=== PATIENT | male | born 1945 | race Caucasian/White ===

== ENCOUNTER → 2023-07-23 15:17 | Outpatient (CLI) | payer MEDICARE, OTHER, SELFPAY ==
--- NOTE | 2023-07-23 15:19 | DI.US.S_ITS ---
PROCEDURE: US SCROTUM INDICATIONS: PAIN AND MASS TECHNIQUE: Real-time scanning was performed of the scrotum and testicles, with image documentation. Color and pulse Doppler interrogation was performed of both testicles. COMPARISON: None. FINDINGS: Right: Testicle is normal in size at 3.2 x 3.8 x 3.3 cm, and homogenous in echotexture. Tiny cyst in right testes is seen measures 3 x 3 x 4 mm in size. Tiny cyst in left testes is also noted measures 3 x 3 x 2 mm in size. Large right-sided spermatocele is seen measures 7 sport and 7 x 5.2 x 7.9 cm and 2.5 x 2 x 5.2 cm in size, containing internal septation. Epididymis is suboptimally seen due to presence of the large spermatocele. No hydrocele or varicoceles. Overlying scrotal skin is normal in thickness. Left: Testicle is normal in size at 4 x 2.8 x 3.3 cm, and homogeneous in echotexture. Epididymis is normal in size. Septated cysts are noted in left epididymis measures 0.9 x 1 x 0.6 cm and 3 x 4 x 3 mm in size. Small left hydrocele is seen. No varicoceles. Overlying scrotal skin is normal in thickness. Doppler: Color and pulse Doppler demonstrate normal and symmetric arterial flow in both testicles. IMPRESSION: 1. Large right-sided septated spermatoceles as above. 2. Septated left epididymal cysts. Small left hydrocele. 3. Tiny bilateral testicular cysts. No solid appearing testicular lesions. Dictated by: Jg Granados M.D. on 07/23/2023 at 16:33 Approved by: Jg Granados M.D. on 07/23/2023 at 16:36
== END ==
PROVIDERS: PCP Family Medicine; Referring Provider Specialist; Visit Provider Specialist
DX: N43.42 Spermatocele of epididymis, multiple; N50.3 Cyst of epididymis; N40.1 Benign prostatic hyperplasia with lower urinary tract symptoms; N13.8 Other obstructive and reflux uropathy
CPT/HCPCS: 76870; 99215

== ENCOUNTER 2023-08-23 07:47 | Day surgery (SDC) | payer MEDICARE, OTHER, SELFPAY ==
[2023-08-20 09:27] VITALS: BMI 26.9
[2023-08-23] VITALS (7 sets, daily range): BP systolic 114–146; BP diastolic 69–78; PULSE 71–85; RESP 12–18; TEMP 36.2–36.9; O2SAT 91–97; BMI 26.9
--- NOTE | 2023-08-23 | PATH_ITS ---
[facility] Accession Number: [id number] No. of containers..01 Tissue . 01 Material submitted: . SPERMATOCELE SAC - RIGHT SPERMATOCELE SAC . 01 Diagnosis: Right Spermatocele, Excision: Epithelial-lined fibrovascular tissue consistent with spermatocele sac. Negative for neoplasia. MRV 08/27/2023 1743 Local . 01 Electronically signed: . Shweta Jensen MD, Pathologist NPI- [id number] . 01 Gross description: . The specimen is received in formalin labeled with the patient's name, , and right spermatocele sac, and consists of a beth, membranous soft tissue fragment with no attached adipose tissue measuring 5.4 x 3.1 x 0.3 cm. Sectioning reveals the membranous tissue to average 0.1 cm thick with no lesions identified. human resources representative sections are submitted in cassette A1. ([id number]) /FRR 08/24/2023 1857 Local . 01 Pathologist provided ICD-10: N50.9 . 01 CPT . 234815 Specimen Comment: A courtesy copy of this report has been sent to [phone] Performed at: 01 [facility] [address] [place] [address] [address] [facility], [place], [place] [id number] MD Devin Potter MD Phone: [phone]
[2023-08-23] MEDS: LACTATED RINGERS 1,000 ML 21 ML IV ×2 (08:16→09:48)
--- NOTE | 2023-08-23 08:32 | PM.PREOP ---
Pre-operative Note Interval Note History & Physical reviewed/Exam performed by Physician: Yes Changes to H&P: No
[2023-08-23] MEDS: CEFAZOLIN 2 GM/100 ML PREMIX 100 ML IV (08:59)
--- NOTE | 2023-08-23 09:11 | P.HP_ITS ---
History of Present Illness History of Present Illness Date Patient Seen: 08/23/23 Time Patient Seen: 08:30 Chief complaint: Right spermatocele Narrative: Patient is a 77-year-old gentleman presenting with complaint increasing size, discomfort, and pain in the right scrotal contents. He has history of having undergone previous right hydrocelectomy. Right scrotal ultrasound 07/23/2023 redemonstrated multiple large right spermatoceles. There is a dominant 7.3 cm spermatocele. Patient indicates a desire to undergo definitive intervention. [facility] Medical History Arthritis BPH (benign prostatic hyperplasia) BPH w urinary obs/LUTS BPH w urinary obs/LUTS Decreased libido Disc disorder Dysuria Epididymal cyst GERD (gastroesophageal reflux disease) Heart attack Hydrocele of testis Right hydrocele Spermatocele of epididymis, multiple Spinal stenosis UTI (urinary tract infection) Surgical History History of hydrocelectomy Social History household members: spouse Smoking Status: Former smoker Meds Home Medications and Allergies Home Medications Medication Instructions Recorded Confirmed Type aspirin 81 mg tablet,delayed 81 mg PO DAILY 05/26/20 08/23/23 History release tamsulosin 0.4 mg capsule 0.8 mg PO BEDTIME #180 caps 11/28/22 08/23/23 Rx pravastatin 20 mg tablet 20 mg PO DAILY 08/20/23 08/23/23 History Allergies Allergy/AdvReac Type Severity Reaction Status Date / Time bee venom protein (honey bee) AdvReac Unknown trouble Verified 08/23/23 08:07 breathing, facial swelling pseudoephedrine AdvReac Unknown Hives Verified 08/23/23 08:07 [From [facility]] Review of Systems Review of Systems ROS: Yes All systems reviewed with the patient and are negative except as otherwise documented Exam Vital Signs (past 8 hours): - 08/23/23 08:09 Temperature 98.5 F Pulse Rate 75 Respiratory Rate 16 Blood Pressure 146/78 H Pulse Oximetry 96 Oxygen Delivery Method Room Air Oxygen Delivery Method Room Air Narrative Exam Narrative: Patient is a well-developed and nourished elderly gentleman in no acute distress. Head/neck-sclera clear pupils are equal and round bilaterally. Chest-equal and unlabored expansion bilaterally. Heart-normal sinus rhythm. Genitalia-global enlargement of both hemiscrotum right much greater than the left. Mildly firm and nontender no erythema. Assessment & Plan Assessment & Plan narrative: Assessment: 1. Symptomatic, large right spermatoceles. Plan: 1. Discussion and informed consent for RIGHT SPERMATOCELECTOMY.
--- NOTE | 2023-08-23 09:22 | SUR.OPER ---
Supine on padded OR bed, head on pillow, arms secured on padded arm boards at <90 degrees abduction, legs uncrossed, safety belt at thigh, tape over blanket over lower legs.
[2023-08-23] MEDS: ACETAMINOPHEN IV 1,000 MG/100 ML VIAL 400 MG IV (09:25)
[2023-08-23] MEDS: NEOMYCIN/POLYMYXIN/BACITRA UD OINT 1 EACH TOP (09:26)
[2023-08-23] MEDS: BUPIVACAINE LIPOSOME 266 MG/20 ML VIAL INJ (09:26)
[2023-08-23] MEDS: BUPIVACAINE 0.25% W/ EPI 30 ML VIAL INJ (09:30)
--- NOTE | 2023-08-23 10:40 | P.OP_ITS ---
Operative Date/Time/Diagnoses Date of procedure: 08/23/23 Time of procedure: 10:25 Pre-op diagnosis: 1. Multiple right spermatoceles. 2. Recurrent right hydrocele. Post-op diagnosis: other (Incidental finding of recurrent right hydrocele) Procedure & Clinicians Procedure: 1. Right spermatoceleectomy. 2. Recurrent right hydrocelectomy (these operative intervention should be assigned a complexity code due to postoperative changes and length of surgery exceeding 150% of usual/expected). Same procedure as scheduled: No (Recurrent right hydrocelectomy.) Indications: 1. Symptomatic right spermatoceles (pain, tenderness). Surgeon: Jesús Hackett Click Yes if Unassisted: Yes Anesthesia Type: General and Local (1.33% Exparel and 0.25% Marcaine with epinephrine.) Operative Notes Closure Type: primary Specimen(s): other (Spermatocele sac) Applied: drain(s) (10 Pakistani fenestrated Oscar drain-right hemiscrotum.) and other Estimated Blood Loss (mL): 5 Blood products transfused: none Procedure in detail: The patient was positioned in supine in the lower abdomen, groin, and genitalia were then prepped and draped in sterile fashion. A solution of 0.25% Marcaine with epinephrine was and new infiltrate midline scrotal raphae and subcutaneous dartos fascia. The needle tip cautery was then used to divide the midline scrotal skin and subcutaneous dartos fascia down to the level of the thickened and adherent tunica vaginalis. Meticulous and diligent blunt and cautery dissection were required to free the scarred tunica vaginalis from the inner scrotal wall and deliver through the incision. It was then open the inferior aspect of the palpable testis. Multiple fluid pockets were encounter. A dominant pocket line superior to the testis was also encountered. The epithelial lining was mobilized from surrounding structures and removed in its entirety. The appendage of the epididymis was cautery amputated. The right testis was then repositioned anatomically within the right hemiscrotum and secured at the inferior and superior pole with 2-0 Monocryl. A solution of Exparel was then utilized to infiltrate the scrotal wall and skin at the inferior lateral aspect of the right hemiscrotum. A fenestrated 10 Pakistani Oscar drain was then brought out through this location from inside to out using a trocar. The length of drain was shortened and positioned within the right hemiscrotum satisfactorily. It was then secured to the skin using a 2 arm David sandal technique in usual fashion. The subcutaneous dartos fascia and skin of the midline incision was then infiltrated with Exparel 1.33%. The dartos fascia was then closed with running 2 0 Monocryl. The skin was reapproximated made using a running horizontal mattress of 4-0 Monocryl. The incision and genitalia were then cleaned and dried and bacitracin antibiotic ointment was applied to the incision line. Dry, sterile fluff gauze were then applied to the scrotum. The patient was then fitted with an athletic supporter. The patient was then awakened, transferred to [facility], and then transported recovery in stable condition. Complications: none Post-operative Condition: stable Disposition: PACU Plan for aftercare: Discharge home.
[2023-08-23] MEDS: OXYCODONE IR 5 MG TABLET PO (10:59)
== END 2023-08-23 11:42 | disposition home or self-care (01) ==
PROVIDERS: PCP Family Medicine; Referring Provider Specialist; Visit Provider Specialist
PROC: (CPT 55040; principal; 2023-08-23 09:15)
DX: N43.42 Spermatocele of epididymis, multiple (principal); N43.3 Hydrocele, unspecified
CPT/HCPCS: 55040; C9290; J0131; J0690; J1100; J2405; J2704; J3010

== ENCOUNTER → 2023-09-09 07:44 | Outpatient (CLI) | payer MEDICARE, OTHER, SELFPAY ==
--- NOTE | 2023-09-09 07:45 | DI.RAD.S_ITS ---
PROCEDURE: XR LUMBAR SPINE MIN 4V INDICATIONS: BACK PAIN TECHNIQUE: 5 views of the lumbar spine were acquired, including bilateral oblique views. COMPARISON: None. FINDINGS: Bones: 5 nonrib-bearing vertebrae are present. There is normal bony alignment. No vertebral body compression fractures. No suspicious bony lesions. Prominent lower lumbar facet arthropathy. Multilevel degenerative disc space loss. Soft tissues: Overlying bowel gas pattern is normal. No suspicious soft tissue calcifications. Oblique images: No pars defects. IMPRESSION: Degenerative change including prominent multilevel facet arthropathy. No acute bony abnormality. Dictated by: Oscar Gonzalez M.D. on 09/09/2023 at 8:09 Approved by: Oscar Gonzalez M.D. on 09/09/2023 at 8:10
== END ==
PROVIDERS: PCP Family Medicine; Referring Provider Physical Medicine & Rehabilitation; Visit Provider Physical Medicine & Rehabilitation
DX: M54.9 Dorsalgia, unspecified (principal); M47.816 Spondylosis without myelopathy or radiculopathy, lumbar region; M48.061 Spinal stenosis, lumbar region without neurogenic claudication; G62.9 Polyneuropathy, unspecified
CPT/HCPCS: 72110; 99214

== ENCOUNTER → 2023-09-19 11:40 | Outpatient (CLI) | payer MEDICARE, OTHER, SELFPAY | PROVIDERS: PCP Family Medicine; Visit Provider Specialist | DX: N40.1 Benign prostatic hyperplasia with lower urinary tract symptoms (principal); N13.8 Other obstructive and reflux uropathy | CPT/HCPCS: 87086 ==

== ENCOUNTER → 2023-09-19 13:35 | Outpatient (CLI) | payer MEDICARE, OTHER, SELFPAY ==
--- NOTE | 2023-09-19 13:36 | DI.MRI.S_ITS ---
PROCEDURE: MR LUMBAR SPINE WO CON INDICATIONS: Progressive lumbar stenosis with facet arthropathy TECHNIQUE: Noncontrast sagittal T1 spin echo and T2 fast echo, sagittal STIR, and T2 fast spin echo through the lumbar spine. In cases with scoliosis, additional coronal T2 fast spin echo may be performed. COMPARISON: [facility], MR, MR LUMBAR SPINE WITHOUT CONTRAST, 03/24/2019, 13:04. FINDINGS: Image quality: Excellent. Alignment and Curvature: There is stable bony alignment with trace retrolisthesis of L2 on L3, L4 on L5, and L5 on S1 with trace anterolisthesis of L3 on L4. Bone Marrow: No acute vertebral body compression fractures. Stable degenerative endplate changes throughout the lumbar spine. No suspicious marrow signal abnormalities. Spinal Cord: Conus medullaris terminates at the L2 level. Visualized cord demonstrates normal signal and size. Paraspinous Soft Tissues: No paravertebral masses. T12-L1: No significant neuroforaminal or spinal canal stenosis. L1-L2: Mild bilateral facet arthropathy. Mild disc bulge. Mild ligamentum flavum thickening. Stable appearance of moderate bilateral neuroforaminal stenosis. No significant spinal canal stenosis. L2-L3: Significant disc space loss. Degenerative endplate changes. Prominent disc bulge. Moderate bilateral facet arthropathy. Ligamentum flavum hypertrophy. Endplate osteophyte formation. Moderate right and severe left bilateral neuroforaminal stenosis not significantly changed. There is moderate spinal canal stenosis. L3-L4: Moderate bilateral facet arthropathy. Ligamentum flavum hypertrophy. Prominent disc bulge. Disc space loss and moderate degenerative endplate changes. Findings result in severe spinal canal stenosis. There is moderate right and moderate-severe left bilateral neuroforaminal stenosis. L4-L5: Degenerative endplate changes. Prominent symmetric disc bulge with smaller focal posterior disc herniation slightly to the left of midline resulting in effacement of the anterior thecal sac. Moderate bilateral facet arthropathy and ligamentum flavum hypertrophy. Severe bilateral neuroforaminal stenosis. Severe spinal canal stenosis as before. L5-S1: Degenerative endplate changes. Disc space loss. Symmetric disc bulge and moderate bilateral facet arthropathy. Mild ligamentum flavum hypertrophy. Severe bilateral neuroforaminal stenosis. No significant spinal canal stenosis. IMPRESSION: MRI spine without acute abnormalities. Multilevel, multifactorial lumbar spondylosis as described above by vertebral body level. Findings appear stable to minimally progressed. Redemonstration of multilevel spinal canal stenosis and neuroforaminal stenosis as described above. Dictated by: Abdias Marin M.D. on 09/19/2023 at 15:12 Approved by: Abdias Marin M.D. on 09/19/2023 at 15:31
== END ==
PROVIDERS: PCP Family Medicine; Referring Provider Physical Medicine & Rehabilitation; Visit Provider Physical Medicine & Rehabilitation
DX: Z09 Encounter for follow-up examination after completed treatment for conditions other than malignant neoplasm (principal); N40.1 Benign prostatic hyperplasia with lower urinary tract symptoms; N13.8 Other obstructive and reflux uropathy; M47.816 Spondylosis without myelopathy or radiculopathy, lumbar region; M47.817 Spondylosis without myelopathy or radiculopathy, lumbosacral region; M48.061 Spinal stenosis, lumbar region without neurogenic claudication; M48.07 Spinal stenosis, lumbosacral region
CPT/HCPCS: 51798; 72148; 81002; 87086

== ENCOUNTER 2023-11-12 13:29 | Outpatient (CLI) | payer MEDICARE, OTHER, SELFPAY ==
[2023-11-12] VITALS (8 sets, daily range): BP systolic 124–178; BP diastolic 71–88; PULSE 60–72; RESP 15–25; TEMP 36.9; O2SAT 92–97
--- NOTE | 2023-11-12 14:00 | DI.RAD.S_ITS ---
PROCEDURE: PAIN L/S FACET INJ/BLK 1ST ANAHI INDICATIONS: FACET ARTHROPATHY COMPARISON: None. FINDINGS: Fluoroscopic spot filming was performed to verify placement of spinal needles at the bilateral L4, L5 and S1 medial branch level(s), as labeled on the films. Appropriate location(s) of the needle tip(s) was confirmed by injection of iodinated contrast. IMPRESSION: Fluoroscopic guidance Approved by: Yair Spivey M.D. on 11/12/2023 at 18:23
[2023-11-12] MEDS: MIDAZOLAM 2 MG/2 ML VIAL IV (14:36)
[2023-11-12] MEDS: iopamidoL 15 ML VIAL 3 ML INJ (14:41)
[2023-11-12] MEDS: LIDOCAINE 1% 20 ML 5 ML INJ (14:41)
[2023-11-12] MEDS: BUPIVACAINE 0.5% (PF) 10 ML VIAL 5 ML INJ (14:41)
--- NOTE | 2023-11-12 14:56 | P.PCN_ITS ---
Date/Time/Diagnoses Date of procedure: 11/12/23 Time of procedure: 14:56 Pre-procedure diagnosis: 1. FACET ARTHROPATHY Post-procedure diagnosis: same Procedure Notes Procedure: 1. BILATERAL- L4, L5 and S1 DIAGNOSTIC MB BLOCKS with LA Anesthetic Indications: Enmanuel is referred by Dr. Alonso for treatment of Bilateral Axial LBP. Physician: Enmanuel Landrum Total Fluoroscopy time (seconds): 10 Total sedation minutes: 13 Complications: none Procedure in detail & Post-procedure care: DESCRIPTION OF PROCEDURE Fluoroscopically guided, contrast-controlled bilateral L4, L5 and S1 medial branch blocks with 0.5cc of 0.5% Marcaine. Following review of allergy and review of potential side effects and complications, including, but not necessarily limited to, infection, allergic reaction, local tissue breakdown, nerve injury, paralysis, stroke and possible , the patient indicated that the patient understood and agreed to proceed. An informed consent document was signed by the patient, witnessed by a nurse, and placed in the patient's chart. After review of previous anaesthesic history and IV conscious sedation the patient was deemed safe to proceed with today's procedure with IV conscious sedation as ASA class II designation. Safety time-out was performed to confirm patient ID, procedure to be performed and site of procedure. IV sedation was accomplished with a combination of 2mg of Versed was administered by the RN after DO order, titrated to patient comfort during the course of the procedure while the patient remained responsive to all verbal commands In the prone position, following sterile prep and drape of the lumbar region, the right L4, L5 and S1 anatomical location of the medial branch of the dorsal ramus was identified fluoroscopically. Subsequently an anesthetic skin wheal using 1% lidocaine solution was initiated at each of the anatomical spots. Subsequently then a 22-gauge 3.5-inch spinal needle was atraumatically introduced and advanced under fluoroscopic guidance at each of the corresponding sites at the right L4, L5 and S1 MB. After negative aspiration, 0.2cc of Isovue 200 was injected, confirming placement without vascular or intrathecal uptake. Subsequently then 0.5cc of 0.5% Marcaine solution was injected at each of the corresponding sites at the right L4, L5 and S1 medial branch locations. The identical procedure was replicated on the left. The patient tolerated the procedure well without signs or symptoms of complications prior to transfer to the recovery area continued monitoring without incident. Post-procedure, the patient was monitored initiating provocative activities to measure the amount of relief from block of the facetogenic pain. The patient reported a VAS of 7 prior to the procedure and a post-procedure VAS of 1. It has been a pleasure to assist in the diagnostic and therapeutic care of your patient. POST OP INSTRUCTIONS The patient was provided with a Pain Log to complete over the next several hours and subsequent days prior to the patient's follow up with the ordering physician. If the patient has real estate transaction manager relief to the solution applied, then they may be a candidate for medial branch rhizotomy. The patient is aware, was provided, once again, with a Pain Log and will follow up with the referring physician for review and clinical correlation
== END 2023-11-12 15:09 | disposition home or self-care (01) ==
LOC: RAD 13:30
PROVIDERS: PCP Family Medicine; Referring Provider Physical Medicine & Rehabilitation; Visit Provider Physical Medicine & Rehabilitation
DX: M47.816 Spondylosis without myelopathy or radiculopathy, lumbar region (principal); M47.817 Spondylosis without myelopathy or radiculopathy, lumbosacral region
CPT/HCPCS: 64493; 64494; 99152; J2250

== ENCOUNTER 2023-12-10 13:03 | Outpatient (CLI) | payer MEDICARE, OTHER, SELFPAY ==
[2023-12-10 13:30] VITALS: BP 166/81; PULSE 62; RESP 20; TEMP 36.9; O2SAT 97
--- NOTE | 2023-12-10 13:30 | DI.RAD.S_ITS ---
PROCEDURE: PAIN L/S FACET INJ/BLK 1ST ANAHI INDICATIONS: facet arthropathy COMPARISON: , , PAIN L/S FACET INJ/BLK 1ST ANAHI, 11/12/2023, 15:39. FINDINGS: Fluoroscopic spot filming was performed to verify placement of spinal needles at the bilateral L4, L5, S1 level(s), as labeled on the films. Appropriate location(s) of the needle tip(s) was confirmed by injection of iodinated contrast. IMPRESSION: Intraoperative fluoroscopy for medial branch block. Dictated by: Gail Jacobs M.D. on 12/10/2023 at 23:52 Approved by: Gail Jacobs M.D. on 12/10/2023 at 23:52
[2023-12-10 14:13] VITALS: BP 167/88; PULSE 69; RESP 23; O2SAT 95
[2023-12-10 14:18] VITALS: BP 153/87; PULSE 74; RESP 24; O2SAT 97
[2023-12-10] MEDS: LIDOCAINE 1% 20 ML 5 ML INJ (14:20)
[2023-12-10] MEDS: iopamidoL 15 ML VIAL 3 ML INJ (14:21)
[2023-12-10] MEDS: LIDOCAINE 2% INJ SDV 5ML 10 ML INJ (14:22)
[2023-12-10 14:23] VITALS: BP 151/86; PULSE 73; RESP 18; O2SAT 97
[2023-12-10 14:28] VITALS: BP 160/84; PULSE 70; RESP 19; O2SAT 97
--- NOTE | 2023-12-10 14:33 | P.PCN_ITS ---
Date/Time/Diagnoses Date of procedure: 12/10/23 Time of procedure: 14:34 Pre-procedure diagnosis: 1. FACET ARTHROPATHY Post-procedure diagnosis: same Procedure Notes Procedure: 1. BILATERAL- L4, L5 and S1 DIAGNOSTIC MB BLOCKS with SA Anesthetic Indications: Enmanuel is referred by Dr. Alonso for treatment of Bilateral Axial LBP. Physician: Enmanuel Landrum Total Fluoroscopy time (seconds): 12 Total sedation minutes: 0 Complications: none Procedure in detail & Post-procedure care: DESCRIPTION OF PROCEDURE Fluoroscopically guided, contrast-controlled bilateral L4, L5 and S1 medial branch blocks with 0.5cc of 2% Lidocaine. Following review of allergy and review of potential side effects and complications, including, but not necessarily limited to, infection, allergic reaction, local tissue breakdown, nerve injury, paralysis, stroke and possible , the patient indicated that the patient understood and agreed to proceed. An informed consent document was signed by the patient, witnessed by a nurse, and placed in the patient's chart. After review of previous anaesthesic history and IV conscious sedation the patient was deemed safe to proceed with today's procedure with IV conscious sedation as ASA class II designation. Safety time-out was performed to confirm patient ID, procedure to be performed and site of procedure. IV sedation was deemed unnecessary and thus not administered by the RN after DO order, titrated to patient comfort during the course of the procedure while the patient remained responsive to all verbal commands In the prone position, following sterile prep and drape of the lumbar region, the right L4, L5 and S1 anatomical location of the medial branch of the dorsal ramus was identified fluoroscopically. Subsequently an anesthetic skin wheal using 1% lidocaine solution was initiated at each of the anatomical spots. Subsequently then a 22-gauge 3.5-inch spinal needle was atraumatically introduced and advanced under fluoroscopic guidance at each of the corresponding sites at the right L4, L5 and S1 MB. After negative aspiration, 0.2cc of Isovue 200 was injected, confirming placement without vascular or intrathecal uptake. Subsequently then 0.5cc of 2% Lidocaine solution was injected at each of the corresponding sites at the right L4, L5 and S1 medial branch locations. The identical procedure was replicated on the left. The patient tolerated the procedure well without signs or symptoms of complications prior to transfer to the recovery area continued monitoring without incident. Post-procedure, the patient was monitored initiating provocative activities to measure the amount of relief from block of the facetogenic pain. The patient reported a VAS of 8 prior to the procedure and a post-procedure VAS of 1. It has been a pleasure to assist in the diagnostic and therapeutic care of your patient. POST OP INSTRUCTIONS The patient was provided with a Pain Log to complete over the next several hours and subsequent days prior to the patient's follow up with the ordering physician. If the patient has digital data analyst relief to the solution applied, then they may be a candidate for medial branch rhizotomy. The patient is aware, was provided, once again, with a Pain Log and will follow up with the referring physician for review and clinical correlation
[2023-12-10 14:34] VITALS: BP 163/75; PULSE 69; RESP 18; O2SAT 95
== END 2023-12-10 14:29 | disposition home or self-care (01) ==
LOC: RAD 13:03
PROVIDERS: PCP Family Medicine; Referring Provider Physical Medicine & Rehabilitation; Visit Provider Physical Medicine & Rehabilitation
DX: M47.816 Spondylosis without myelopathy or radiculopathy, lumbar region (principal); M47.817 Spondylosis without myelopathy or radiculopathy, lumbosacral region
CPT/HCPCS: 64493; 64494

== ENCOUNTER 2024-01-16 07:32 | Outpatient (CLI) | payer MEDICARE, OTHER, SELFPAY ==
[2024-01-16] VITALS (16 sets, daily range): BP systolic 124–161; BP diastolic 66–93; PULSE 63–79; RESP 12–22; TEMP 36.5; O2SAT 92–98
--- NOTE | 2024-01-16 08:00 | DI.RAD.S_ITS ---
PROCEDURE: PAIN L/S MED/LAT N RFA BILAT INDICATIONS: LUMBAR FACET ARTHROPATHY COMPARISON: [facility], XA, PAIN L/S FACET INJ/BLK 1ST ANAHI, 12/10/2023, 15:20. [facility], XA, PAIN L/S FACET INJ/BLK 1ST ANAHI, 11/12/2023, 15:39. [facility], MR, MR LUMBAR SPINE WO CON, 09/19/2023, 13:42. [facility], CR, XR LUMBAR SPINE MIN 4V, 09/09/2023, 7:47. FINDINGS: Fluoroscopic spot filming was performed to verify placement of spinal needles on both sides at the L4, L5, and S1 levels, as labeled on the films. IMPRESSION: Images during rhizotomy within normal limits. Dictated by: Abhilash Anne M.D. on 01/16/2024 at 10:33 Approved by: Abhilash Anne M.D. on 01/16/2024 at 10:33
[2024-01-16] MEDS: MIDAZOLAM 2 MG/2 ML VIAL IV (08:05)
[2024-01-16] MEDS: BUPIVACAINE 0.5% (PF) 10 ML VIAL 5 ML INJ (08:19)
[2024-01-16] MEDS: LIDOCAINE 1% 20 ML 5 ML INJ (08:19)
[2024-01-16] MEDS: fentaNYL 100 MCG/2 ML INJ 25 MCG IV ×2 (08:22→08:40)
--- NOTE | 2024-01-16 09:03 | P.PCN_ITS ---
Date/Time/Diagnoses Date of procedure: 01/16/24 Time of procedure: 09:03 Pre-procedure diagnosis: 1. RECALCITRANT FACET ARTHROPATHY Post-procedure diagnosis: same Procedure Notes Procedure: 1. BILATERAL L4 AND L5 MEDIAL BRANCH RADIOFREQUENCY NEUROTOMY AND S1 DORSAL RAMUS BRANCH RADIOFREQUENCY NEUROTOMY Indications: Emnanuel is referred by Dr. Alonso for treatment of facet arthropathy. Physician: Enmanuel Landrum Total Fluoroscopy time (seconds): 28 Total sedation minutes: 55 Complications: none Procedure in detail & Post-procedure care: DESCRIPTION OF PROCEDURE Bilateral L4 and L5 medial branch radiofrequency neurotomy and bilateral S1 dorsal ramus radiofrequency neurotomy under fluoroscopy with conscious sedation. The patient is well known to this clinic having undergone previous facet injections with good but temporary relief. The patient has experienced appropriate, concordant relief with previous facet and median branch blocks but the patient's pain has been recalcitrant to further conservative measures. Therefore, based upon the patient's relief and persistent symptoms, the patient is considered an appropriate candidate for facet rhizotomy. All of the patient's questions regarding the risks versus benefits of the procedure, including, but not limited to, bleeding, infection, temporary as well as lasting nerve injury, paralysis, stroke, and , as well treatment alternatives were answered to satisfaction. After obtaining informed consent, denial of pertinent drug allergies, as well as being made aware of the potential risks of bleeding, infection, spinal cord trauma, paralysis, temporary and permanent nerve damage, seizure, stroke, and possible , the patient was brought to the fluoroscopy suite and positioned prone on the fluoroscopy table. The lumbar region was prepped in usual sterile fashion and covered with a fenestrated drape in the usual sterile fashion. Appropriate monitors applied including pulse oximeter, pulse, and blood pressure for regular monitoring throughout the procedure. After review of previous anaesthesic history and IV conscious sedation the patient was deemed safe to proceed with today's procedure with IV conscious sedation as ASA class II designation. Safety time-out was performed to confirm patient ID, procedure to be performed and site of procedure. IV sedation was accomplished with a combination of 2mg of Versed and 50mcg of Fentanyl administered by the RN after DO order, titrated to patient comfort during the course of the procedure while the patient remained responsive to all verbal commands. After local infiltration using 1% lidocaine, under fluoroscopic guidance, a 10- cm RF insulated needle with a 10-mm active tip was positioned parallel to the junction of the right sacral ala and the superior articulating process where the S1 dorsal ramus resides. Needle placement was confirmed with motor stimulation of .5v on the right which produced local stimulation without radicular component. The stimulation was then increased to 2v with, once again, only local multifidus stimulation without radicular component. The needle was then removed and the identical procedure was performed along the length of the right L5 medial branch with motor stimulation at .7v on the right. The identical procedure was once again performed along the length of the right L4 medial branch with motor stimulation of .5v on the right. The medial branches were then anesthetised with 0.5% Marcaine. This was then followed by two discreet lesions performed at 80 degrees Celsius for 90 seconds each. The identical procedure was repeated on the left. The patient tolerated the procedure well without signs or symptoms of complications prior to transfer to the recovery area continued monitoring without incident. The patient was then transferred to the recovery area where they were observed for an appropriate period of time after the injection. The patient reported a VAS score of 9 prior to the procedure and a post-procedure VAS of 0. POST OP INSTRUCTIONS The patient was provided a Pain Log to continue to record the patient's response to the target-specific procedure prior to the patient's follow-up visit with the referring physician. Additionally, specific post-injection care instructions and a contact number to our office were provided if concerns arise regarding possible complications associated with the procedure are suspected.
== END 2024-01-16 09:20 | disposition home or self-care (01) ==
LOC: RAD 07:32
PROVIDERS: PCP Family Medicine; Referring Provider Physical Medicine & Rehabilitation; Visit Provider Physical Medicine & Rehabilitation
DX: M47.816 Spondylosis without myelopathy or radiculopathy, lumbar region (principal); M47.817 Spondylosis without myelopathy or radiculopathy, lumbosacral region
CPT/HCPCS: 64494; 64635; 64636; 99152; 99153; J2250; J3010

== ENCOUNTER 2024-03-31 13:04 | Outpatient (CLI) | payer MEDICARE, OTHER, SELFPAY ==
[2024-03-31 13:25] VITALS: BP 154/78; PULSE 68; RESP 15; TEMP 36.8; O2SAT 95
--- NOTE | 2024-03-31 13:30 | DI.RAD.S_ITS ---
PROCEDURE: PAIN SI JOINT INJECTION ANAHI INDICATIONS: Bilateral SI joint injection COMPARISON: None. FINDINGS: Fluoroscopic spot filming was performed to verify placement of spinal needles at the bilateral sacroiliac joints level(s), as labeled on the films. Appropriate location(s) of the needle tip(s) was confirmed by injection of iodinated contrast. IMPRESSION: Fluoroscopic guidance utilized for a bilateral sacroiliac joint injection. Dictated by: Ty Welsh M.D. on 03/31/2024 at 15:13 Approved by: Ty Welsh M.D. on 03/31/2024 at 15:14
[2024-03-31 13:58] VITALS: BP 151/73; PULSE 71; RESP 22; O2SAT 95
[2024-03-31] MEDS: iopamidoL 15 ML VIAL 3 ML INJ (13:59)
[2024-03-31] MEDS: BETAMETHASONE 30 MG/5 ML MDV 12 MG INJ (13:59)
[2024-03-31] MEDS: BUPIVACAINE 0.5% (PF) 10 ML VIAL 5 ML INJ (13:59)
[2024-03-31 14:03] VITALS: BP 150/79; PULSE 79; RESP 18; O2SAT 98
[2024-03-31 14:06] VITALS: BP 144/75; PULSE 76; RESP 25; O2SAT 96
--- NOTE | 2024-03-31 14:09 | PM.PROC.IR.1 ---
Date/Time/Diagnoses Date of procedure: 03/31/24 Time of procedure: 14:09 Pre-procedure diagnosis: Sacroiliac joint pain/DJD Post-procedure diagnosis: same Procedure Notes Procedure: Fluoroscopic guided contrast controlled bilateral sacroiliac joint injection Indications: Enmanuel is referred by Dr. Alonso for treatment of bilateral sacroiliac joint DJD Physician: Enmanuel Landrum Total Fluoroscopy time (seconds): 12 Total sedation minutes: 0 Complications: none Procedure in detail & Post-procedure care: Description of procedure Fluoroscopic guided, contrast controlled bilateral sacroiliac joint injection Following review of allergies and review of potential side effects and complications, including, but not necessarily limited to, infection, allergic reaction, local tissue breakdown, temporary as well as permanent nerve injury, paralysis, stroke and possible , the patient indicated that they understood and agreed to proceed. An informed consent was signed by the patient, witnessed by a nurse, and placed in the patient's chart. Additionally, other treatment options including modalities, medications, and physical therapy were reviewed with the patient. After review of previous anaesthesic history and IV conscious sedation the patient was deemed safe to proceed with today?s procedure with IV conscious sedation as ASA class II designation. Safety time-out was performed to confirm patient ID, procedure to be performed and site of procedure. IV sedation was deemed unnecessary and thus not administered by the RN after DO order, titrated to patient comfort during the course of the procedure while the patient remained responsive to all verbal commands In the prone position following sterile prep and drape of the pelvic region, the hyper lucency on in the inferior aspect of the sacroiliac joint was identified fluoroscopically the skin was anesthetized be a 25 gauge 1.5 inch needle with approximately 2cc of 1% lidocaine solution. At this point, a 22 gauge 3 in spinal needle was atraumatically introduced and advanced under fluoroscopic guidance into the inferior aspect of the right sacroiliac joint. Following negative aspiration, approximately 0.3cc of Isovue-300 was injected confirming intra-articular placement without vascular uptake. Radiographic data, including multiple fluoroscopic views of the pelvis, reveals a spinal needle in the sacroiliac joint hyper lucent zone. Subsequent view show flow contrast tear superiorly and inferiorly within the joint capsule without vascular intrathecal uptake. At this point a total of 1cc of 0.5% Marcaine was combined with 1cc of 6mg of betamethasone was injected without incident. Attention was then refocused the left sacroiliac joint where the procedure was replicated. The procedure tolerated the procedure well without signs or symptoms of complications prior to transfer to the recovery area continued monitoring without incident. The patient was then transferred to the recovery area with a bur observed for an appropriate time after the injection. The patient reverted a vas score of 7 prior to the procedure and post-procedure vas of 1. Postop instructions The patient was provided with a pain like to continue to record the patient's response to the target specific procedure prior to the patient's follow-up visit with the referring physician. Additionally, specific post injection care instructions and a contact number to our office were provided if concerns arise regarding the possible complications associated with procedure are suspected.
[2024-03-31 14:10] VITALS: BP 146/70; PULSE 60; RESP 17; O2SAT 97
== END 2024-03-31 14:25 | disposition home or self-care (01) ==
LOC: RAD 13:05
PROVIDERS: PCP Family Medicine; Referring Provider Physical Medicine & Rehabilitation; Visit Provider Physical Medicine & Rehabilitation
DX: M53.3 Sacrococcygeal disorders, not elsewhere classified (principal)
CPT/HCPCS: 27096; J0702

== ENCOUNTER 2024-06-25 15:42 | Outpatient (CLI) | payer MEDICARE, OTHER, SELFPAY ==
[2024-06-25 16:00] VITALS: BP 133/64; PULSE 77; RESP 18; TEMP 37.1; O2SAT 93
--- NOTE | 2024-06-25 16:00 | DI.RAD.S_ITS ---
PROCEDURE: PAIN SI JOINT INJECTION ANAHI INDICATIONS: Bilateral SI joint injection COMPARISON: [facility], XA, PAIN SI JOINT INJECTION ANAHI, 03/31/2024, 13:58. FINDINGS: Fluoroscopic spot filming was performed to verify placement of spinal needles at the bilateral sacroiliac joints , as labeled on the films. Appropriate location(s) of the needle tip(s) was confirmed by injection of iodinated contrast. IMPRESSION: Fluoro guidance was provided intraoperatively for bilateral SI joint injection performed by ordering physician. Dictated by: Jg Granados M.D. on 06/26/2024 at 10:24 Approved by: Jg Granados M.D. on 06/26/2024 at 10:25
[2024-06-25 16:25] VITALS: BP 126/64; PULSE 80; RESP 22; O2SAT 93
[2024-06-25] MEDS: BETAMETHASONE 30 MG/5 ML MDV 12 MG INJ (16:29)
[2024-06-25] MEDS: BUPIVACAINE 0.5% (PF) 10 ML VIAL 5 ML INJ (16:29)
[2024-06-25] MEDS: iopamidoL 15 ML VIAL 3 ML INJ (16:29)
[2024-06-25 16:30] VITALS: BP 136/66; PULSE 80; RESP 19; O2SAT 92
[2024-06-25 16:35] VITALS: BP 124/64; PULSE 81; RESP 18; O2SAT 93
[2024-06-25 16:40] VITALS: BP 119/60; PULSE 79; RESP 19; O2SAT 91
[2024-06-25 16:47] VITALS: BP 147/73; PULSE 81; RESP 16; O2SAT 94
--- NOTE | 2024-06-25 16:53 | PM.PROC.IR.1 ---
Date/Time/Diagnoses Date of procedure: 06/25/24 Time of procedure: 16:53 Pre-procedure diagnosis: Sacroiliac joint pain/DJD Post-procedure diagnosis: same Procedure Notes Procedure: Fluoroscopic guided contrast controlled bilateral sacroiliac joint injection Indications: Enmanuel is referred by Dr. Alonso for treatment of bilateral sacroiliac joint DJD Physician: Enmanuel Landrum Total Fluoroscopy time (seconds): 12 Total sedation minutes: 0 Complications: none Procedure in detail & Post-procedure care: Description of procedure Fluoroscopic guided, contrast controlled bilateral sacroiliac joint injection Following review of allergies and review of potential side effects and complications, including, but not necessarily limited to, infection, allergic reaction, local tissue breakdown, temporary as well as permanent nerve injury, paralysis, stroke and possible , the patient indicated that they understood and agreed to proceed. An informed consent was signed by the patient, witnessed by a nurse, and placed in the patient's chart. Additionally, other treatment options including modalities, medications, and physical therapy were reviewed with the patient. After review of previous anaesthesic history and IV conscious sedation the patient was deemed safe to proceed with today?s procedure with IV conscious sedation as ASA class II designation. Safety time-out was performed to confirm patient ID, procedure to be performed and site of procedure. IV sedation was not administered by the RN after DO order, titrated to patient comfort during the course of the procedure while the patient remained responsive to all verbal commands In the prone position following sterile prep and drape of the pelvic region, the hyper lucency on in the inferior aspect of the sacroiliac joint was identified fluoroscopically the skin was anesthetized be a 25 gauge 1.5 inch needle with approximately 2cc of 1% lidocaine solution. At this point, a 22 gauge 3 in spinal needle was atraumatically introduced and advanced under fluoroscopic guidance into the inferior aspect of the right sacroiliac joint. Following negative aspiration, approximately 0.3cc of Isovue-300 was injected confirming intra-articular placement without vascular uptake. Radiographic data, including multiple fluoroscopic views of the pelvis, reveals a spinal needle in the sacroiliac joint hyper lucent zone. Subsequent view show flow contrast tear superiorly and inferiorly within the joint capsule without vascular intrathecal uptake. At this point a total of 1cc of 0.5% Marcaine was combined with 1cc of 6mg of betamethasone was injected without incident. Attention was then refocused the left sacroiliac joint where the procedure was replicated. The procedure tolerated the procedure well without signs or symptoms of complications prior to transfer to the recovery area continued monitoring without incident. The patient was then transferred to the recovery area with a bur observed for an appropriate time after the injection. The patient reverted a vas score of 7 prior to the procedure and post-procedure vas of 1. Postop instructions The patient was provided with a pain like to continue to record the patient's response to the target specific procedure prior to the patient's follow-up visit with the referring physician. Additionally, specific post injection care instructions and a contact number to our office were provided if concerns arise regarding the possible complications associated with procedure are suspected.
== END 2024-06-25 16:49 | disposition home or self-care (01) ==
LOC: RAD 15:44
PROVIDERS: PCP Family Medicine; Referring Provider Physical Medicine & Rehabilitation; Visit Provider Physical Medicine & Rehabilitation
DX: M53.3 Sacrococcygeal disorders, not elsewhere classified (principal); M46.1 Sacroiliitis, not elsewhere classified
CPT/HCPCS: 27096; 77002; J0702

== ENCOUNTER 2024-10-08 10:26 | Outpatient (CLI) | payer MEDICARE, OTHER, SELFPAY ==
[2024-10-08] VITALS (9 sets, daily range): BP systolic 123–155; BP diastolic 72–85; PULSE 68–79; RESP 14–25; TEMP 36.9; O2SAT 93–98
--- NOTE | 2024-10-08 11:03 | DI.RAD.S_ITS ---
PROCEDURE: PAIN SI JOINT INJECTION ANAHI INDICATIONS: SI JOINT DYSFUNCTION COMPARISON: , XA, PAIN SI JOINT INJECTION ANAHI, 06/25/2024, 16:28. FINDINGS: Fluoroscopic spot filming was performed to verify placement of spinal needles at the sacroiliac joints as labeled on the films. Appropriate location(s) of the needle tip(s) was confirmed by injection of iodinated contrast. IMPRESSION: Sacroiliac injections, please see procedure note for full details. Dictated by: Lenard Jimenez M.D. on 10/08/2024 at 16:46 Approved by: Lenard Jimenez M.D. on 10/08/2024 at 16:46
[2024-10-08] MEDS: MIDAZOLAM 2 MG/2 ML VIAL IV (11:32)
[2024-10-08] MEDS: iopamidoL 15 ML VIAL 3 ML INJ (11:35)
[2024-10-08] MEDS: methylPREDNISolone acetate 80 MG/ML VIAL INJ (11:36)
[2024-10-08] MEDS: BUPIVACAINE 0.5% (PF) 10 ML VIAL 2 ML INJ (11:36)
--- NOTE | 2024-10-08 11:56 | PM.PROC.IR.1 ---
Date/Time/Diagnoses Date of procedure: 10/08/24 Time of procedure: 11:56 Pre-procedure diagnosis: Sacroiliac joint pain/DJD Post-procedure diagnosis: same Procedure Notes Procedure: Fluoroscopic guided contrast controlled bilateral sacroiliac joint injection Indications: Enmanuel is referred by Dr. Alonso for treatment of bilateral sacroiliac joint DJD Physician: Enmanuel Landrum Total Fluoroscopy time (seconds): 17 Total sedation minutes: 13 Complications: none Procedure in detail & Post-procedure care: Description of procedure Fluoroscopic guided, contrast controlled bilateral sacroiliac joint injection Following review of allergies and review of potential side effects and complications, including, but not necessarily limited to, infection, allergic reaction, local tissue breakdown, temporary as well as permanent nerve injury, paralysis, stroke and possible , the patient indicated that they understood and agreed to proceed. An informed consent was signed by the patient, witnessed by a nurse, and placed in the patient's chart. Additionally, other treatment options including modalities, medications, and physical therapy were reviewed with the patient. After review of previous anaesthesic history and IV conscious sedation the patient was deemed safe to proceed with today?s procedure with IV conscious sedation as ASA class II designation. Safety time-out was performed to confirm patient ID, procedure to be performed and site of procedure. IV sedation was accomplished with a combination of 2mg Versed were administered by the RN after DO order, titrated to patient comfort during the course of the procedure while the patient remained responsive to all verbal commands In the prone position following sterile prep and drape of the pelvic region, the hyper lucency on in the inferior aspect of the sacroiliac joint was identified fluoroscopically the skin was anesthetized be a 25 gauge 1.5 inch needle with approximately 2cc of 1% lidocaine solution. At this point, a 22 gauge 3 in spinal needle was atraumatically introduced and advanced under fluoroscopic guidance into the inferior aspect of the right sacroiliac joint. Following negative aspiration, approximately 0.3cc of Isovue-300 was injected confirming intra-articular placement without vascular uptake. Radiographic data, including multiple fluoroscopic views of the pelvis, reveals a spinal needle in the sacroiliac joint hyper lucent zone. Subsequent view show flow contrast tear superiorly and inferiorly within the joint capsule without vascular intrathecal uptake. At this point a total of 1cc of 0.5% Marcaine was combined with 1cc of 40mg of depo medrol was injected without incident. Attention was then refocused the left sacroiliac joint where the procedure was replicated. The procedure tolerated the procedure well without signs or symptoms of complications prior to transfer to the recovery area continued monitoring without incident. The patient was then transferred to the recovery area with a bur observed for an appropriate time after the injection. The patient reverted a vas score of 7 prior to the procedure and post-procedure vas of 1. Postop instructions The patient was provided with a pain like to continue to record the patient's response to the target specific procedure prior to the patient's follow-up visit with the referring physician. Additionally, specific post injection care instructions and a contact number to our office were provided if concerns arise regarding the possible complications associated with procedure are suspected.
== END 2024-10-08 12:15 | disposition home or self-care (01) ==
LOC: RAD 10:27
PROVIDERS: PCP Family Medicine; Referring Provider Physical Medicine & Rehabilitation; Visit Provider Physical Medicine & Rehabilitation
DX: M46.1 Sacroiliitis, not elsewhere classified (principal); M53.3 Sacrococcygeal disorders, not elsewhere classified
CPT/HCPCS: 27096; 99152; J1010; J2250

== ENCOUNTER 2025-03-23 10:13 | Outpatient (CLI) | payer MEDICARE, OTHER, SELFPAY ==
[2025-03-23 10:50] VITALS: BP 144/70; PULSE 67; RESP 16; TEMP 36.8; O2SAT 93
[2025-03-23 11:16] VITALS: BP 133/87; PULSE 77; RESP 16; O2SAT 95
[2025-03-23 11:20] VITALS: BP 133/86; PULSE 79; RESP 16; O2SAT 95
[2025-03-23 11:25] VITALS: BP 130/82; PULSE 76; RESP 16; O2SAT 94
[2025-03-23] MEDS: DEXAMETHASONE 10 MG/ML VIAL INJ (11:25)
[2025-03-23] MEDS: iopamidoL 15 ML VIAL 3 ML INJ (11:25)
[2025-03-23] MEDS: BETAMETHASONE 30 MG/5 ML MDV 12 MG INJ (11:26)
[2025-03-23] MEDS: BUPIVACAINE 0.25% (PF) VIAL 2 ML INJ (11:26)
--- NOTE | 2025-03-23 11:33 | P.PCN_ITS ---
Date/Time/Diagnoses Date of procedure: 03/23/25 Time of procedure: 11:34 Pre-procedure diagnosis: 1. HNP WITH RADICULAR FEATURES, 2. MULTILEVEL CENTRAL STENOSIS, Post-procedure diagnosis: same Procedure Notes Procedure: 1. FLUOROSCOPICALLY GUIDED CONTRAST CONTROLLED INTERLAMINAR EPIDURAL STEROID INJECTION - L3/4 Indications: Enmanuel is referred by Dr. Alonso for treatment of Bilateral Foraminal Stenosis L>R LE symptoms. Physician: Enmanuel Landrum Total Fluoroscopy time (seconds): 7 Total sedation minutes: 0 Complications: none Procedure in detail & Post-procedure care: FINDINGS Multilevel Central Spinal Stenosis with Nerve Root Compression DESCRIPTION OF PROCEDURE Fluoroscopically guided, contrast-controlled L3/4 translaminar epidural steroid injection. Following review of allergy and review of potential side effects and complications, including, but not necessarily limited to, infection, allergic reaction, local tissue breakdown, temporary as well as permanent nerve injury, paralysis, stroke and possible , the patient indicated that the patient understood and agreed to proceed. An informed consent document was signed by the patient, witnessed by a nurse, and placed in the patient's chart. Additionally, other treatment options including modalities, medications, and physical therapy were reviewed with the patient. After review of previous anaesthesic history and IV conscious sedation the patient was deemed safe to proceed with today?s procedure with IV conscious sedation as ASA class II designation. Safety time-out was performed to confirm patient ID, procedure to be performed and site of procedure. IV sedation was not administered by the RN after DO order, titrated to patient comfort during the course of the procedure while the patient remained responsive to all verbal commands. In the prone position, following sterile prep and drape of the lumbar region, the L3/4 translaminar space was identified fluoroscopically. The skin was ane sthetized via a 25-gauge, 1.5-inch needle with 1% lidocaine solution. At this point, a 22-gauge short bevel spinal needle was atraumatically introduced and advanced under fluoroscopic guidance into the region of the L3/4 translaminar space. Depth was confirmed on lateral view. Radiological data, including multiple fluoroscopic views of the lumbar spine, reveal a spinal needle at the L3/4 translaminar space. Lateral views then show placement of the needle in the epidural space. Subsequent views show contrast material flowing superiorly and inferiorly in the epidural space. No vascular o r intrathecal uptake is observed. At this point, using loss of resistance technique with saline and air, the epidural space was entered. This was confirmed following negative aspiration with injection of approximately 1.5 cc of Isovue 200, showing excellent epidural flow without vascular or intrathecal uptake. At this point, 1cc of 1% lidocaine solution combined with 2cc or 10mg of dexamethasone and 6mg of betamethasone was injected without incident. The patient tolerated the procedure well without signs or symptoms of complications prior to transfer to the recovery area continued monitoring without incident. The patient was then transferred to the recovery area where they were observed for an appropriate period of time after the injection. The patient reported a VAS score of 6 prior to the procedure and a post- procedure VAS of 0. POST OP INSTRUCTIONS The patient was provided a Pain Log to continue to record their response to the target-specific procedure prior to follow-up visit with their referring physician. Additionally, specific post-injection care instructions and a contact number to our office were provided if concerns arise regarding possible complications associated with the procedure are suspected.
[2025-03-23 11:35] VITALS: BP 143/76; PULSE 67; RESP 14; O2SAT 93
== END 2025-03-23 11:35 | disposition home or self-care (01) ==
LOC: RAD 10:14
PROVIDERS: PCP Family Medicine; Referring Provider Physical Medicine & Rehabilitation; Visit Provider Physical Medicine & Rehabilitation
DX: M51.16 Intervertebral disc disorders with radiculopathy, lumbar region (principal); M48.061 Spinal stenosis, lumbar region without neurogenic claudication
CPT/HCPCS: 62323; J0702; J1100; J3490